=== PATIENT | female | born 1975 | race Caucasian/White ===

== ENCOUNTER 2021-08-05 06:34 | Day surgery (SDC) | payer BC ==
[2021-07-31 11:44] LABS: Absolute Lymphocytes (CBC) 2.2 K/uL (0.7-4.9); Basophils % 1.1 % (0-1.3); Hematocrit 42.6 % (36.0-45.0); Lymphocytes % 44.5 % (15.3-44.8); MPV 7.1 fL (7.6-11.3); RBC Red Blood Cell Count 4.68 M/uL (3.86-4.86)
[2021-07-31 11:49] LABS: Urine Appearance CLEAR (Clear); Urine Bilirubin NEGATIVE (Negative); Urine Blood NEGATIVE (Negative); Urine Color YELLOW (Yellow); Urine Glucose NEGATIVE (Negative); Urine Protein NEGATIVE (Negative); Urine Specific Gravity <=1.005 (1.005-1.030); Urine Urobilinogen 0.2 mg/dL (0.2-1.0)
[2021-07-31 11:50] LABS: Urine Microscopic Reflex NO UMIC
[2021-08-05] MEDS ORDERED: SCOPOLAMINE HYDROBROMIDE PATCH TD ONE (07:18)
[2021-08-05] MEDS ORDERED: Ringers Lactate 1,000 ML IV ONE (07:18)
[2021-08-05] MEDS ORDERED: CEFAZOLIN/SWI 2gm 2 GM/20 ML SYR ONE (07:19)
[2021-08-05] MEDS ORDERED: propofoL 200 MG/20 ML VIAL IV ONE (07:21)
[2021-08-05] MEDS ORDERED: dexAMETHasone 10 MG/ML VIAL ONE (07:21)
[2021-08-05] MEDS ORDERED: ROCURONIUM 50 MG/5 ML VIAL IV ONE (07:21)
[2021-08-05] MEDS ORDERED: KETAMINE HCL 500 MG/5 ML VIAL ONE (07:21)
[2021-08-05] MEDS ORDERED: LIDOCAINE 2% MPF 5 ML VIAL ONE (07:22)
[2021-08-05] MEDS ORDERED: MIDAZOLAM HCL 2 MG/2 ML INJ ONE (07:22)
[2021-08-05] MEDS ORDERED: NS 0.9% VIAL 10 ML ONE (07:22)
[2021-08-05] MEDS ORDERED: ONDANSETRON 4 MG/2 ML VIAL ONE (07:22)
[2021-08-05] MEDS ORDERED: FENTANYL CITR 250 MCG/5 ML ONE (07:22)
[2021-08-05] MEDS ORDERED: ACETAMINOPHEN 500 MG TAB ONE (07:38)
[2021-08-05] MEDS ORDERED: CELECOXIB 100 MG CAPSULE ONE (07:38)
[2021-08-05] MEDS: Ringers Lactate 1,000 ML IV ONE ×2 (08:15→08:20)
[2021-08-05] MEDS: BUPIVACAINE 0.25% PF 10 ML VIAL ONE ×2 (08:20→08:37)
[2021-08-05] MEDS ORDERED: EPHEDRINE SULF 50 MG/ML VIAL ONE (08:35)
[2021-08-05] MEDS ORDERED: BUPIVACAINE 0.25% PF 10 ML VIAL ONE (08:46)
[2021-08-05] MEDS ORDERED: GLYCOPYRROLATE 0.2 MG/ML SYR ONE (09:20)
[2021-08-05] MEDS ORDERED: KETOROLAC 30 MG/ML INJ ONE (10:06)
[2021-08-05] MEDS ORDERED: LIDOCAINE 1% W/EPI 1:100,000 MDV 20 ML VIAL ONE (10:37)
[2021-08-05] MEDS ORDERED: IBUPROFEN 200 MG TAB PO PRN (10:49)
[2021-08-05] MEDS ORDERED: PROMETHAZINE INJ 25 MG/ML AMP IV PRN (10:49)
[2021-08-05] MEDS ORDERED: HYDROCODONE/APAP 5/325 MG TAB PO PRN (10:49)
[2021-08-05] MEDS ORDERED: MEPERIDINE HCL 25 MG/ML SYR IM PRN (10:49)
[2021-08-05 10:52] VITALS: O2SAT 100
--- NOTE | 2021-08-05 10:55 | P.BOP ---
Preoperative diagnosis: Pelvic pain, AUB/A/E, right labial pain Postoperative diagnosis: same and endometriosis Primary procedure: TLH left oophorectomy, Endometriosis excision,Rt reduction labioplasty Audit Manager: Concepción De Leon Estimated blood loss: min Specimen: uterus, left ovary, ant abd wall endometriosis Findings: Endometriosis:uterine wall,post wall,ant abd wall, R>L labium minus30% Anesthesia: General Complications: None Transferred to: Recovery Room
[2021-08-05] MEDS: HYDROMORPHONE HCL 1 MG/ML INJ ONE ×2 (11:17→11:22)
[2021-08-05 12:37] VITALS: BP 109/71; TEMP 96.8
[2021-08-05] MEDS ORDERED: IBUPROFEN 200 MG TAB PO ONE (12:52)
[2021-08-05] MEDS ORDERED: HYDROCODONE/APAP 5/325 MG TAB ONE (14:38)
[2021-08-05] MEDS ORDERED: HOME MED 1 EA UNK (Simvastatin [Simvastatin] 10 MG Tablet) PO SCH (21:00)
[2021-08-06] MEDS ORDERED: LORATADINE 10 MG TAB PO SCH (09:00)
[2021-08-06] MEDS ORDERED: [UNRECOGNIZED DRUG - REMARK] PO SCH (09:00)
[2021-08-06] MEDS ORDERED: lisinopriL 10 MG TAB PO SCH (09:00)
--- NOTE | 2021-08-07 10:42 | OP ---
Date of Procedure: 08/05/2021 Surgeon: Maria D Enriquez MD [employer]: Concepción Herrera Preoperative Diagnosis: Pelvic pain, menorrhagia (AUB-A/E), and right labial pain. Postoperative Diagnosis: Pelvic pain, menorrhagia (AUB-A/E), right labial pain, and endometriosis. Procedures Performed: Total laparoscopic hysterectomy, left oophorectomy, endometriosis excision, an d right reduction labiaplasty. Anesthesia: General endotracheal. Specimens: Uterus, left ovary, anterior abdominal wall, endometriosis. Complications: No complications. Drains: No drains. Patient Condition: Stable. Findings: Endometriosis on the uterine wall, posterior wall, anterior abdominal wall and right labiu m minus greater than the left by at least 30% and the reduction labiaplasty was done. Indications: Patient is a 46-year-old female with a longstanding history of dysmenorrhea, menorrhagi a, pelvic pain, controlled with levonorgestrel IUD. After she started to have breakthrough pelvic pa in, removal of the IUD was done for pain still continued. Endometrial sampling was negative. She carpenter d laparoscopy, right oophorectomy in the past, endometriosis excision as well. Had some relief with recurrence of pain, so I went ahead to put her on GnRH antagonist, failed to have relief, and was hav ing significant side effects as well. Occasional history of dyspareunia as well. She had bilateral salpingectomy in the past as well. So, given all the past medical attempts to control her pain and b leeding with history of endometriosis, consented for hysterectomy, left oophorectomy. Postoperative hormone therapy as needed. She was consented and brought to the OR. She also has a history of right labial discomfort and pain. On examination, asymmetry and elongation was noted. This could be the reason for the local discomfort from rubbing. So, she was consented for a reduction labial plasty. Description Of Procedure: After informed consent was verified, she was brought to the OR. 2 g of An cef was given preop. SCDs were started. Patient placed in a supine fashion on the operating table a nd general anesthesia was given. She was then placed in dorsal lithotomy position using Jose stirru ps. Position check was done after tucking the arms by the side. Time-out was done and abdomen, vulv a, vagina, and perineum were prepped and draped in a sterile fashion. Speculum was placed to expose the cervix. Anterior lip grasped with 2 Allis clamps and a large VCare was introduced into the uterus and fixed in place for uterine manipulation. Urbina was placed in the bladder, drained, and connected for retrograde filling to an LR bag. This area was then draped. 1 cm infraumbilical incision made with a scalpel using the open laparoscopy technique. Fascia was in cised, tagged with 0 Vicryl sutures and peritoneum entered sharply and S retractors were placed. Has son was introduced and adequate insufflation was obtained. Site of entry was checked and this was un remarkable. Upper abdominal surfaces were unremarkable as well. No evidence of any endometriosis wa s noted here. After placing the patient in Trendelenburg position, pelvic cavity was surveyed. Anterior abdominal wall had some adhesions as well as endometriosis on the wall that was vesicular. 10 mm suprapubic and left lower quadrant ports were placed under direct vision. All the skin and fas cial sites were injected with 0.25% Marcaine at the entry and exit. Endometriosis was noted on the serosa of the uterus, attachments of both round ligaments, i n the area below the left round ligament. The ovary appeared to be mostly unremarkable. Posteriorly , the endometriosis was present close to serosa on the distal uterosacral attachments and the posteri or cul-de-sac and going towards the posterior wall of the vagina. Ureters were unremarkable. No dis tortion there of course. So, proceeded with taking down the adhesions on the anterior abdominal wall, excising the peritoneal implant that was attached to the underlying muscle as well. This was excised and handed out for perm anent pathology. In the area of the mesosalpinx, peritoneum was opened up and dissection carried to the paraovarian ar ea. The ovarian pedicle was identified and the peritoneum medial to it was opened up between the ure ter and the pedicle, and the pedicle was taken down with the help of the LigaSure, and dissection was carried in the peritoneum to detached the ovary from the lateral wall. Then, the round ligament was taken down, making sure that the implants were also excised and included in the specimen. Broad lig ament taken down vessels exposed. Broad ligament opened up to create a bladder flap, posterior taken down to the distal left uterosacral, making sure that the ureter was dissected laterally. On the opposite side, the round ligament was taken down with the help of the LigaSure and then the an terior broad ligament connected to finish the bladder flap. Bladder was dissected inferiorly to expo se the anterior wall of the vagina where the cuff was and then posteriorly taken down to the level of the distal uterosacral. Here, the endometrial implants were excised by dissecting and opening of th e peritoneum and including it with the specimen and the posterior wall of the vagina. Similar dissec tion, opposite side to release the endometriosis as well. Then vessels were skeletonized by taking d own the broad ligament with the help of the LigaSure. The vessels were isolated and taken down with the help of bipolar basket tip and the LigaSure on both sides. Cardinal ligaments were taken down as well and circumferential colpotomy performed with a monopolar hook blade. The specimen was detached and pulled out through the vagina. Thorough irrigation and suction were performed and there was excellent hemostasis. Closure of the cu ff was done with the help of 2-0 Vicryl sutures simple on both angles and 3 [id number] in the c enter reattaching the distal uterosacral back to the top of the vaginal cuff. Thorough irrigation an d suction were performed. No evidence of electrical, mechanical, or thermal injury to the ureters. The pedicles were all hemostatic. Trocars were removed under direct vision. Fascia at the umbilicus was closed with the help of 0 Vicr yl sutures tied to each other. Then, the suprapubic fascial site was closed with the help of a 0 [place] simple stitch. All skin incisions closed with interrupted 4-0 Vicryl interrupted sutures. Urbina was removed. Labiaplasty was performed. Marking was made in the further area of excision, which was at least 30% more than the other side. O nce this was marked, it was injected with 1% lidocaine mixed with 1:100,000 epinephrine, 10 cc was us ed. The skin was excised with the help of monopolar needle using the cutting mode. Then, both flaps were opened up, dissected inferiorly to release them and separate them. Then avoiding dog-ears, 3-0 Vicryl sutures interrupted were placed on the deep subcutaneous tissue, closing the space, and then bringing the subcuticular tissue together with another 2-0 Vicryl. Then, closure of the epithel ium was done with the help of horizontal mattress 4-0 nylon sutures to avoid any separation. These s utures were later. Instrument and sponge counts were correct at the end of the case. Patient tolerated the procedure we ll. She was recovered from anesthesia and taken to PACU in stable condition. EBL was minimal. She has 1-week followup with me. Findings discussed with her . SONJA/CHIQUIS Voice ID: [id number] Report ID: [id number]
== END 2021-08-05 14:29 | disposition home or self-care (01) ==
LOC: OR 06:34
PROVIDERS: ATTEND Obstetrics & Gynecology
PROC: 0WBF4ZZ Excision of Abdominal Wall, Percutaneous Endoscopic Approach (ICD-10-PCS; 2021-08-05)
PROC: 0UBM0ZZ Excision of Vulva, Open Approach (ICD-10-PCS; 2021-08-05)
PROC: 0UT94ZZ Resection of Uterus, Percutaneous Endoscopic Approach (ICD-10-PCS; principal; 2021-08-05 07:30)
PROC: 0UT24ZZ Resection of Bilateral Ovaries, Percutaneous Endoscopic Approach (ICD-10-PCS; 2021-08-05 07:30)
DX: N80.3 Endometriosis of pelvic peritoneum (principal); R10.2 Pelvic and perineal pain; N94.12 Deep dyspareunia; N92.0 Excessive and frequent menstruation with regular cycle; N91.1 Secondary amenorrhea; F32.1 Major depressive disorder, single episode, moderate; Z20.822 Contact with and (suspected) exposure to COVID-19
CPT/HCPCS: 85025; 36415 ×2; 86900; 86850; 84703; 86901; 88305; 88307; 81003; 58571; 58662; 56620; U0002; J2704; J2250; J3010; J1100; J1170; J0690; J7120 ×2; J2405